=== PATIENT | female | born 1965 | race Caucasian/White ===

== ENCOUNTER 2017-05-15 18:09 | Emergency (ER) | payer OTHER ==
[~2017-05-15] VITALS: Ht 182.9 cm; Wt 95.6 kg
[2017-05-15 18:14] VITALS: BP 128/78; PULSE 91; RESP 16; TEMP 99.1; O2SAT 99
--- NOTE | 2017-05-15 20:28 | PD ---
HPI Chief Complaint: Laceration/Skin Injury Time Seen by Provider: 19:47 Travel History International Travel<30 days: No Contact w/Intl Traveler<30days: No Traveled to known affect area: No History of Present Illness HPI 52 old female here with laceration to the left distal forearm dorsal aspect. The laceration was caused by metal portion of the clot that shelving. She reports normal sensation and full range of motion of the wrist and all fingers. Patient reports pain at the site of the laceration.No aggravating or alleviating factors. Symptoms severity mild to moderate. Tetanus immunization is up-to-date. [facility] Past Medical History Medical History: Denies Significant Hx Tetanus Vaccination: < 5 Years Influenza Vaccination: No ?: Not Menopausal: Yes Past Surgical History Oral Surgery: Yes (WISDOM TEETH REMOVED) Social History Alcohol Use: Yes (RARELY) Tobacco Use: No Substance Use: No Allergies-Medications (Allergen,Severity, Reaction): Coded Allergies: bee venom protein (honey bee) (Verified Allergy, Unknown, 05/15/17) Reported Meds & Prescriptions Reported Meds & Active Scripts Active No Active Prescriptions or Reported Medications Review of Systems Except as stated in HPI: all other systems reviewed are Neg Physical Exam Narrative GENERAL: Alert and well-appearing female SKIN: Warm and dry. 1.5 cm laceration left distal forearm dorsal aspect. HEAD: Normocephalic. EYES: No injection or drainage. NECK: Supple, trachea midline. MUSCULOSKELETAL: No cyanosis, or edema. Left upper extremity: 1.5 cm laceration left distal forearm dorsal aspect. No tendon or vascular injury. Patient is able to flex and extend the wrist and all digits. Normal sensation. 2+ radial pulse. Brisk cap refill. Data Data Last Documented VS Vital Signs Date Time Temp Pulse Resp B/P (MAP) Pulse Ox O2 Delivery O2 Flow Rate FiO2 05/15/17 18:14 99.1 91 16 128/78 (95) 99 MDM Medical Decision Making Medical Screen Exam Complete: Yes Emergency Medical Condition: Yes Differential Diagnosis Skin laceration, tendon laceration, vascular injury Narrative Course 52-year-old female here with laceration to the left distal forearm. The extremity is neurovascularly intact. Laceration repair performed. Patient tolerated procedure well. Procedures Procedure Narrative LACERATION LOCATION: Left distal forearm dorsal aspect LENGTH: 1.5 cm NUMBER OF STITCHES/CLARI: 5 REPAIR: The area of the laceration was prepped with Betadine and sterilely draped. The laceration was infiltrated with 1% lidocaine. The wound was copiously irrigated and explored without evidence of foreign body, tendon injury or neurovascular injury. The wound was closed using 5-0 proline . This was a [SINGLE] layer repair. A sterile dressing was applied. The patient was advised to keep the dressing clean and dry. Patient tolerated the procedure well. Diagnosis Primary Impression: Laceration of forearm Qualified Codes: S51.812A - Laceration without foreign body of left forearm, initial encounter Referrals: Primary Care Physician Additional Instructions: Sutures need to be removed in 7-10 days. Do not submerge the wound in water. Start washing the area with soap and water starting tomorrow. Apply a thin layer of antibiotic ointment and cover with a dry dressing. Scripts No Active Prescriptions or Reported Meds Disposition: 01 DISCHARGE HOME Condition: Stable Fransisca Caro May 15, 2017 20:28
== END 2017-05-15 20:52 | disposition home or self-care (01) ==
LOC: PHEFT 18:09
DX: S51.812A Laceration without foreign body of left forearm, initial encounter (principal); W45.8XXA Other foreign body or object entering through skin, initial encounter
CPT/HCPCS: 12001

== ENCOUNTER → 2017-08-07 | Outpatient (CLI) | payer OTHER ==
[2017-08-07 13:38] LABS: BASOPHIL % 0.6 % (0.0-2.0); EOSINOPHIL # 0.1 TH/MM3 (0-0.4); EOSINOPHIL % 1.6 % (0.0-4.0); HEMATOCRIT 37.9 % (35.0-46.0); HEMOGLOBIN 12.8 GM/DL (11.6-15.3); LYMPH % 37.3 % (9.0-44.0); LYMPHOCYTE # 2.1 TH/MM3 (1.0-4.8); MEAN CELL VOLUME 85.7 FL (80.0-100.0); MEAN CORPUSCULAR HGB CONC 33.8 % (32.0-36.0); MEAN PLATELET VOLUME 7.2 FL (7.0-11.0); MONO % 8.2 % (0.0-8.0); MONOCYTE # 0.5 TH/MM3 (0-0.9); NEUT % 52.3 % (16.0-70.0); PLATELET COUNT 232 TH/MM3 (150-450); RED BLOOD COUNT 4.42 MIL/MM3 (4.00-5.30); RED CELL DISTRIBUTION WIDTH 13.9 % (11.6-17.2); WHITE BLOOD COUNT 5.7 TH/MM3 (4.0-11.0)
[2017-08-07 13:41] LABS: BILIRUBIN, URINE NEG (NEG); BLOOD, URINE NEG (NEG); GLUCOSE,URINE NEG (NEG); KETONE, URINE NEG (NEG); MUCUS URINE FEW /lpf (OCC); NITRITE,URINE NEG (NEG); PH, URINE 5.5 (5.0-8.5); SQUAMOUS EPITHELIAL CELL URINE <1 /hpf (0-5); URINE COLOR LIGHT-YELLOW (YELLW/STRAW); URINE LEUKOCYTE ESTERASE SMALL (NEG)
--- NOTE | 2017-08-08 23:12 | EKG ---
Date Performed: 08/07/2017 Time Performed: 12:59:23 PTAGE: 52 years EKG: Sinus rhythm NORMAL ECG NO PREVIOUS TRACING DOCTOR: Dayday Gibbons Interpretating Date/Time 08/08/2017 23:10:03
== END ==
LOC: CPRE 12:38
PROVIDERS: ATTEND Obstetrics & Gynecology
DX: Z01.810 Encounter for preprocedural cardiovascular examination (principal); Z01.812 Encounter for preprocedural laboratory examination; N95.0 Postmenopausal bleeding
CPT/HCPCS: 36415; 81001; 84702; 85025; 93005

== ENCOUNTER → 2017-08-10 | Day surgery (SDC) | payer OTHER ==
--- NOTE | 2017-08-09 12:59 | MH ---
cc: Wilmer Bonilla MD DATE OF ADMISSION: 08/10/2017 ADMITTING DIAGNOSIS: Postmenopausal bleeding. HISTORY OF PRESENT ILLNESS: A 52-year-old white female, para 0, had LMP in 04/2014 and then had bleeding in 04/2017 that lasted 5 days, similar to a period. Ultrasound done on 06/06/2017 showed intramural cyst and a small right ovarian cyst endometrium 3 mm. Uterine length was 6.2 cm. She is now admitted for surgical evaluation. PAST SURGICAL HISTORY: She had dental surgery in . Fracture of the left fibula in 1984. MEDICATIONS: None. ALLERGIES: NONE. TRANSFUSIONS: None. OBSTETRIC HISTORY: None. SOCIAL HISTORY: She is . 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 18 years. Alcohol: Occasional. Tobacco: None. Drugs: None. FAMILY HISTORY: Noncontributory. PHYSICAL EXAMINATION: GENERAL: She is a well-nourished, well-developed white female. VITAL SIGNS: Stable. HEENT: Normal. CHEST: Clear. HEART: Regular rate. BREASTS: Symmetrical. ABDOMEN: Benign. PELVIC: Normal external genitalia and BUS. Vagina is normal. Cervix normal. Uterus is normal size, shape, anterior. No adnexal masses. ASSESSMENT: Postmenopausal bleeding. PLAN: She is now admitted for outpatient hysteroscopy, D and C. While in the office, I explained the procedures, the risks, benefits and complications and the patient would like to proceed. MD CORRINA Irving/ADRIANO , 12:30 PM , 12:59 PM
[~2017-08-10] VITALS: Ht 182.9 cm; Wt 94.8 kg
[~2017-08-10] MED LIST: *ONDANSETRON 4 MG VIAL PERIprocedural Use ONLY ONE; ACETAMINOPHEN 1000 MG/100 ML 100 ML IV SCH; APREPITANT 40 MG CAP ONE; CHLORHEXIDINE GLUCONATE 2 % 1 PACK (2 CLOTHS) TOPICAL PRN; DEXAMETHASONE SOD PHOS 4 MG/ML VIAL IV ONE; DO NOT ADM ANY ANTICOAGULANT DRUGS PRN; KETOROLAC TROMETHAMINE 30 MG/ML (IVP) VIAL IV PUSH ONE; LACTATED RINGER'S 1000 ML IV PRN; LIDOCAINE HCL 1% PF 5 ML SYRINGE OTHER ONE; METOCLOPRAMIDE HCL 10 MG/2 ML VIAL IV PRN; METOPROLOL TARTRATE 25 MG TAB PO PRN; MIDAZOLAM HCL 2 MG/2 ML VIAL ONE; MORPHINE SULFATE 4 MG/ML INJ ONE; ONDANSETRON HCL 4 MG/2 ML VIAL IV ONE; POVIDONE IODINE 5% (ANTISEPSIS KIT) 4 APPLICATIONS EACH NARE PRN; PROPOFOL 200 MG/20 ML AMP IV ONE; SODIUM CHLORID 0.9% 500 ML IV PRN; ceFAZolin 1,000 MG/NS 100 ML IV SCH
--- NOTE | 2017-08-10 08:17 | MP ---
cc: Wilmer Bonilla MD DATE OF OPERATION: 08/10/2017 PREOPERATIVE DIAGNOSIS: Post menopausal bleeding. POSTOPERATIVE DIAGNOSIS: Post menopausal bleeding. PROCEDURE: Hysteroscopy, D and C. ANESTHESIA: General LMA. ESTIMATED BLOOD LOSS: About 20 mL. FLUIDS: 800 mL crystalloid. OBJECTIVE FINDINGS: Following induction of adequate general LMA anesthesia, the patient was prepped and draped supine on the operating table in the dorsal lithotomy position in the usual sterile fashion with the bladder being drained via in and out catheterization. Examination revealed a normal size, shape, anterior uterus. No adnexal masses. Heavy weighted speculum was placed in the posterior fornix of the vagina. The anterior lip of the cervix grasped with a single-toothed tenaculum. Cervix was stenotic, but gently sounded with a soft dilator to 7 cm and the cervix dilated to #18 Hanks dilator. Hysteroscope was passed revealing a normal endocervix and a normal-appearing endometrium. The scope was now withdrawn and endocervical curettings obtained with a small serrated curette, endometrium a small sharp curet and polyp forceps passed to tile picker loose tissue and debris. All instruments were removed. The cervical tenaculum sites were sutured with 3-0 chromic. All counts were correct. The patient's legs taken out of the stirrups and she was awakened and taken to the recovery room in good condition. MD CORRINA Irving/ARLENE , 08:07 AM , 08:15 AM
[2017-08-10 09:40] VITALS: BP 123/69; PULSE 58; RESP 20; TEMP 97.5; O2SAT 100
== END | disposition home or self-care (01) ==
LOC: HSDC 05:25
PROVIDERS: ATTEND Obstetrics & Gynecology
DX: N95.0 Postmenopausal bleeding (principal)
CPT/HCPCS: 00952; 58558; 88305; J1100; J1885; J2250; J2270; J2405; J7120; J8501